=== PATIENT | female | born 1985 | race Caucasian/White ===

== ENCOUNTER 2021-05-05 15:27 | Emergency (ER) | payer OTHER ==
[~2021-05-05] VITALS: Ht 160 cm; Wt 74.8 kg
[2021-05-05] MEDS ORDERED: VENLAFAXINE H37.5 M2 PO (16:13)
[2021-05-05] MEDS ORDERED: LEVO-T25 MCG PO (16:13)
[2021-05-05] MEDS ORDERED: DEPO-PROVE150 MG/1 M IM (16:14)
[2021-05-05] MEDS ORDERED: VITAMIN D31250 MC1 PO (16:14)
[2021-05-05 16:24] LABS: URINE BILIRUBIN NEGATIVE (Negative); URINE BLOOD TRACE (Negative); URINE CLARITY CLEAR; URINE COLOR YELLOW; URINE GLUCOSE-RANDOM* NEGATIVE (Negative); URINE KETONES NEGATIVE (Negative); URINE LEUKOCYTES-REFLEX NEGATIVE (Negative); URINE NITRITE-REFLEX NEGATIVE (Negative); URINE PROTEIN (DIPSTICK) NEGATIVE (Negative); URINE SPECIFIC GRAVITY <= 1.005 (1.005-1.035); URINE UROBILINOGEN 0.2 E.U./dl (0.2-1.0)
[2021-05-05 16:27] LABS: ABSOLUTE NEUTROPHILS 3.9 thou/uL (1.4-8.2); BASOPHILS 0.5 % (0.0-2.0); EOSINOPHILS 2.9 % (0.0-3.0); HEMATOCRIT 41.5 % (37.0-47.0); HEMOGLOBIN 14.1 gm/dL (12.0-15.0); LYMPHOCYTES 32.3 % (24.0-44.0); MCH 30.2 pg (26.0-34.0); MCHC 33.9 g/dL (28.0-37.0); MCV 89.1 fL (80.0-100.0); MONOCYTES 6.7 % (1.0-8.0); PLATELET COUNT 295 thou/uL (150-400); POLYS 57.6 % (36.0-66.0); RBC 4.65 mil/uL (4.20-5.00); RDW 13.8 % (10.5-14.5); WBC 6.7 thou/uL (4.0-11.0)
[2021-05-05 16:37] LABS: CALCIUM 9.3 mg/dL (8.5-10.1); POTASSIUM 3.8 mmol/L (3.5-5.1)
[2021-05-05 16:41] LABS: TOTAL BILIRUBIN 0.4 mg/dL (0.2-1.0); TOTAL PROTEIN 7.5 g/dL (6.4-8.2)
[2021-05-05] MEDS ORDERED: MIRALAX119 GM PO (17:57)
[2021-05-05] MEDS ORDERED: PROCTOCREAM-HC30 GM RECTAL (17:57)
[2021-05-05 18:07] VITALS: BP 101/57
== END 2021-05-05 18:07 | disposition home or self-care (01) ==
LOC: ER 15:27
PROVIDERS: Physician Assistant
DX: K64.4 Residual hemorrhoidal skin tags (principal); Z79.899 Other long term (current) drug therapy

== ENCOUNTER 2021-12-03 21:29 | Emergency (ER) | payer OTHER ==
[~2021-12-03] VITALS: Ht 160 cm; Wt 74.8 kg
[~2021-12-03 21:29] MED LIST: DEPO-PROVE150 MG/1 M IM; LEVO-T25 MCG PO; MIRALAX119 GM PO; PROCTOCREAM-HC30 GM RECTAL; VENLAFAXINE H37.5 M2 PO; VITAMIN D31250 MC1 PO
[2021-12-03 22:49] LABS: URINE BILIRUBIN NEGATIVE (Negative); URINE BLOOD NEGATIVE (Negative); URINE CLARITY SL CLOUDY; URINE COLOR YELLOW; URINE GLUCOSE-RANDOM* NEGATIVE (Negative); URINE KETONES TRACE (Negative); URINE LEUKOCYTES-REFLEX NEGATIVE (Negative); URINE NITRITE-REFLEX NEGATIVE (Negative); URINE PROTEIN (DIPSTICK) NEGATIVE (Negative); URINE SPECIFIC GRAVITY >= 1.030 (1.005-1.035)
[2021-12-04 00:36] LABS: ABSOLUTE NEUTROPHILS 4.7 thou/uL (1.4-8.2); BASOPHILS 0.7 % (0.0-2.0); EOSINOPHILS 1.3 % (0.0-3.0); HEMATOCRIT 41.4 % (37.0-47.0); HEMOGLOBIN 14.3 gm/dL (12.0-15.0); MCH 30.5 pg (26.0-34.0); MCHC 34.6 g/dL (28.0-37.0); MCV 88.2 fL (80.0-100.0); MONOCYTES 4.4 % (1.0-8.0); PLATELET COUNT 284 thou/uL (150-400); POLYS 63.6 % (36.0-66.0); RBC 4.69 mil/uL (4.20-5.00); RDW 13.8 % (10.5-14.5); WBC 7.4 thou/uL (4.0-11.0)
[2021-12-04 00:57] LABS: CALCIUM 9.3 mg/dL (8.5-10.1); POTASSIUM 3.5 mmol/L (3.5-5.1)
[2021-12-04 01:03] LABS: ALBUMIN 3.7 g/dL (3.4-5.0); TOTAL BILIRUBIN 0.3 mg/dL (0.2-1.0)
[2021-12-04 01:42] VITALS: BP 105/72
== END 2021-12-04 01:45 | disposition home or self-care (01) ==
LOC: ER 21:29
PROVIDERS: Emergency Medicine
DX: R30.0 Dysuria (principal); R10.2 Pelvic and perineal pain; F32.9 Major depressive disorder, single episode, unspecified; F41.9 Anxiety disorder, unspecified; E03.9 Hypothyroidism, unspecified; Z79.899 Other long term (current) drug therapy; Z88.0 Allergy status to penicillin